=== PATIENT | male | born 1980 | race Caucasian/White ===

== ENCOUNTER 2017-10-07 23:17 | Emergency (ER) | payer SELFPAY ==
[~2017-10-07] VITALS: Ht 185.4 cm; Wt 99.0 kg
[2017-10-07 23:20] VITALS: BP 107/60
[2017-10-08] MEDS ORDERED: IBUPROFEN 100MG/5ML UDC ONE (01:40)
== END 2017-10-08 00:03 | disposition left against medical advice (07) ==
LOC: ER 23:17
DX: Z53.21 Procedure and treatment not carried out due to patient leaving prior to being seen by health care provider (principal)